=== PATIENT | male | born 1975 | race Caucasian/White ===

== ENCOUNTER → 2016-10-20 | Day surgery (SDC) | payer MEDICARE | END | disposition home or self-care (01) | LOC: SDC 11:32 | DX: K81.1 Chronic cholecystitis (principal); R06.02 Shortness of breath; M54.9 Dorsalgia, unspecified; K21.9 Gastro-esophageal reflux disease without esophagitis; F41.9 Anxiety disorder, unspecified; F32.9 Major depressive disorder, single episode, unspecified; E66.01 Morbid (severe) obesity due to excess calories | CPT/HCPCS: C1894; J1885; J2704; J2765; Q9967 ==